=== PATIENT | female | born 1940 | race Caucasian/White ===

== ENCOUNTER 2017-08-31 10:31 | Emergency (ER) | payer MEDICARE ==
[2017-08-31 11:36] VITALS: BP 144/85
--- NOTE | 2017-08-31 13:12 | Emergency Department Report ---
Blank Doc - Documentation Documentation: Patient is a 76-year-old [place] woman who is presenting with 10 days of cough cold congestion. Cough is productive of yellow sputum. Patient also has fevers as well and a mild sore throat. Patient had a mild wheeze present and prolonged respiratory phase patient be given a DuoNeb as well as a chest x-ray and strep and flu screen will be done as well
[2017-08-31] MEDS ORDERED: DUONEB *Not for PRN Use IH ONE (13:13)
--- NOTE | 2017-08-31 14:20 | XRay Report ---
ROUTINE CHEST, TWO VIEWS: HISTORY: cough. The trachea, heart, mediastinal contour, lung ayers and bony thorax are unremarkable. IMPRESSION: Unremarkable chest x-ray.
--- NOTE | 2017-08-31 14:58 | Emergency Department Report ---
- General Chief Complaint: Upper Respiratory Infection Stated Complaint: FLU LIKE SYMPTOMS Time Seen by Provider: 08/31/17 12:46 Source: patient Mode of arrival: Ambulatory Limitations: No Limitations - History of Present Illness Initial Comments: 6-year-old [place] female is brought in by her daughter for concern for cough this lasted 10 days. Patient also reports that she has a sore throat and irritation to her throat as well as pain when she coughs in her throat. Patient denies any ear pain denies any vomiting denies any nausea denies any chest pain denies any fever but she chills. She reports that she started taking amoxicillin for 1 week as well as Tessalon Perles that was provided to her by her daughter. MD Complaint: cough, sore throat -: days(s) (10) Severity: mild Consistency: constant Improves With: nothing Worsens With: nothing Associated Symptoms: chills, cough Treatments Prior to Arrival: antibiotics (amoxicillin), other (Tessalon Perles) - Related Data Allergies Allergy/AdvReac Type Severity Reaction Status Date / Time No Known Allergies Allergy Unverified 08/31/17 11:36 ED Review of Systems ROS: Stated complaint: FLU LIKE SYMPTOMS Other details as noted in HPI Constitutional: chills. denies: fever Eyes: denies: eye pain, eye discharge, vision change ENT: throat pain Respiratory: cough Cardiovascular: denies: chest pain, palpitations Endocrine: no symptoms reported Gastrointestinal: denies: abdominal pain, nausea, diarrhea Genitourinary: denies: urgency, dysuria, discharge Musculoskeletal: denies: back pain, joint swelling, arthralgia Skin: denies: rash, lesions Neurological: denies: headache, weakness, paresthesias Psychiatric: denies: anxiety, depression Hematological/Lymphatic: denies: easy bleeding, easy bruising ED Past Medical Hx - Past Medical History Previous Medical History?: No - Surgical History Past Surgical History?: No - Social History Smoking Status: Never Smoker Substance Use Type: None ED Physical Exam - General Limitations: No Limitations General appearance: alert, in no apparent distress - Head Head exam: Present: atraumatic, normocephalic - Eye Eye exam: Present: normal appearance - ENT ENT exam: Present: mucous membranes moist - Neck Neck exam: Present: normal inspection - Respiratory Respiratory exam: Present: normal lung sounds bilaterally. Absent: respiratory distress - Cardiovascular Cardiovascular Exam: Present: regular rate, normal rhythm. Absent: systolic murmur, diastolic murmur, rubs, gallop - GI/Abdominal GI/Abdominal exam: Present: soft, normal bowel sounds - Extremities Exam Extremities exam: Present: normal inspection - Back Exam Back exam: Present: normal inspection - Neurological Exam Neurological exam: Present: alert - Psychiatric Psychiatric exam: Present: normal affect, normal mood - Skin Skin exam: Present: warm, dry, intact, normal color. Absent: rash ED Course Vital Signs 08/31/17 08/31/17 08/31/17 11:30 13:22 13:47 Temperature 98.7 F Pulse Rate 96 H Pulse Rate [ 84 87 Bilateral] Respiratory 16 Rate Respiratory 16 16 Rate [Bilateral ] Blood Pressure 144/85 O2 Sat by Pulse 96 Oximetry ED Medical Decision Making - Radiology Data Radiology results: report reviewed, image reviewed Unremarkable chest exam. - Medical Decision Making Patient has been evaluated by this provider as well as Dr. Gonzalez. Patient has currently been taken amoxicillin and Tessalon Perles which would've cover patient for any upper respiratory infection. Chest x-ray was within normal limits no acute abnormalities. Throat looks normal discussed with daughter will instruct patient to take Tylenol or ibuprofen for her throat she can; cough drops and continue with the Tessalon Perles. Critical care attestation.: If time is entered above; I have spent that time in minutes in the direct care of this critically ill patient, excluding procedure time. ED Disposition Clinical Impression: Cough Disposition: DC-01 TO HOME OR SELFCARE Is pt being admited?: No Does the pt Need Aspirin: No Condition: Stable Instructions: Guaifenesin (By mouth) Additional Instructions: You can continue with the Tessalon Perles. Or [id number] Robitussin. Tylenol or Motrin for pain and fever. Drink plenty of fluids follow up with her primary care provider if symptoms persist or gets worse follow up in emergency room. Referrals: PRIMARY CARE,MD [Primary Care Provider] - 3-5 Days Forms: Accompanied Note
== END 2017-08-31 15:25 | disposition home or self-care (01) ==
LOC: EDBD 10:31 → ED 10:31
DX: R05 Cough (principal)
CPT/HCPCS: 71046; 94640